=== PATIENT | male | born 1975 | race Two or more races ===

== ENCOUNTER 2017-04-13 17:22 | Emergency (ER) | payer SELFPAY ==
[2017-04-13] MEDS ORDERED: NS 1,000 ML IV ONE (17:51)
[2017-04-13] MEDS ORDERED: ONDANSETRON 4 MG/2 ML VIAL IVP ONE (17:51)
[2017-04-13] MEDS ORDERED: FAMOTIDINE 20 MG/NACL 50 ML IV ONE (17:51)
[2017-04-13] MEDS ORDERED: HYDROmorphONE/DILAUDID 1 MG/ML INJ IVP ONE (17:51)
[2017-04-13 17:56] LABS: % IMMATURE GRANULYOCYTES 0.7 % (0.0-1.1); ABSOLUTE IMMATURE GRANULOCYTES 0.08 10^3/uL (0.00-0.10); ADD DIFF? NO; ADD MORPH? NO; ADD SCAN? NO; ATYPICAL LYMPHOCYTE FLAG 0 (0-99); FRAGMENT RBC FLAG 0 (0-99); HEMATOCRIT 47.5 % (40.0-51.0); HEMOGLOBIN 15.8 g/dL (13.7-17.5); LEFT SHIFT FLG 0 (0-99); LIPEMIA HEMOLYSIS FLAG 80 (0-99); MEAN CELL HEMOGLOBIN 28.3 pg (27.9-34.1); MEAN CELL HEMOGLOBIN CONCENTR. 33.3 g/dL (32.4-36.7); MEAN CELL VOLUME 85.1 fL (81.5-99.8); MEAN PLATELET VOLUME 10.2 fL (8.7-11.7); PLATELET CLUMPS FLAG 0 (0-99); PLATELET COUNT 298 10^3/uL (150-400); RED BLOOD CELL COUNT 5.58 10^6/uL (4.40-6.38); RED CELL DISTRIBUTION WIDTH 13.4 % (11.5-15.2)
[2017-04-13 18:06] LABS: ALANINE AMINOTRANSFERASE 75 IU/L (21-72); ALBUMIN 4.4 g/dL (3.5-5.0); ALKALINE PHOSPHATASE 87 IU/L (38-126); ANION GAP 14 mEq/L (8-16); ASPARTATE AMINOTRANSFERASE 43 IU/L (17-59); BILIRUBIN,TOTAL 0.4 mg/dL (0.1-1.4); BILIRUBIN-CONJUGATED 0.3 mg/dL (0.0-0.5); BILIRUBIN-UNCONJUGATED 0.1 mg/dL (0.0-1.1); CALCIUM 9.4 mg/dL (8.5-10.4); CARBON DIOXIDE 23 mEq/l (22-31); CHLORIDE 103 mEq/L (97-110); GLOMERULAR FILTRATION RATE > 60; GLUCOSE 115 mg/dL (70-100); SODIUM 140 mEq/L (134-144); TOTAL PROTEIN 7.5 g/dL (6.3-8.2)
[2017-04-13] MEDS ORDERED: IOPAMIDOL (ISOVUE-300) 100 ML BTL ONE (18:11)
--- NOTE | 2017-04-13 18:11 | EDPHY ---
H & P Time Seen by Provider: 04/13/17 17:37 HPI/ROS: HPI Abdominal pain. 41-year-old male by private vehicle. History of an abdominal wall hernia surgically repaired 1-2 years ago. He does not know the name of the surgeon. Reports over the last 3 months he has had intermittent supraumbilical pain to his hernia area which usually resolves on its own. Sometimes it is associated with nausea and vomiting. He reports sudden-onset severe supraumbilical pain starting 1 hour prior to arrival with associated nausea and 2 episodes of nonbilious nonbloody vomiting. Last meal was several hours before this. ROS: Constitutional: No fever, no chills. No weakness. Eyes: No discharge. No changes in vision. ENT: No sore throat. No nasal congestion or rhinorrhea. Respiratory: No cough. No shortness of breath. Cardiac: No chest pain, no palpitations. Gastrointestinal: As above, no diarrhea. Genitourinary: No hematuria. No dysuria or increased frequency with urination. Musculoskeletal: No back pain. No neck pain. No myalgias or arthralgias. Skin: No rashes. Neurological: No headache. No focal weakness or altered sensation. Past medical history: As above. Social history: Nonsmoker. Drinks alcohol socially. Here by himself. Physical Exam: General Appearance: Alert, appears uncomfortable. This patient is responding to questions appropriately and in full sentences. This patient appears well- hydrated and well-nourished. Eyes: Pupils equal and round no pallor or injection. No lid edema, erythema or injection. Respiratory: There are no retractions, lungs are clear to auscultation with good air movement bilaterally. Cardiovascular: Regular rate and rhythm. No murmur. Gastrointestinal: Very tender palpable midline supraumbilical mass which is non reducible, bowel sounds present. No focal tenderness at McBurney's point. No Gil sign. Neurological: Motor sensory function is grossly intact. Cranial nerves are normal. Gait is normal. Skin: Warm and dry, no rashes. Musculoskeletal: Neck is supple and nontender. Extremities are symmetrical. All joints range without pain or impingement. Psychiatric: No agitation. No depression. Database: EKG: Imaging: CT scan of abdomen and pelvis with IV contrast: Demonstrates a supraumbilical abdominal wall hernia. Results were discussed with staff radiologist Dr. Jeffrey Diaz. Procedures: Emergency department course: IV placed. He was started on IV normal saline with 1 L to be given over the next hour. He was initially given 0.5 mg of IV hydromorphone, 20 mg of IV Pepcid and 4 mg of IV Zofran. I-STAT will be obtained for stat creatinine. Patient will be sent for CT imaging to evaluate for strangulated versus incarcerated abdominal wall hernia. 6:45 p.m., spoke with Dr. Jae Do, on-call trauma surgeon, who evaluated the patient in the emergency department. The patient had received above pain medication. Dr. Jae Do was able to reduce the patient's abdominal wall hernia. 7:00 p.m., spoke with Dr. Do. Patient cleared for discharge to home. Dr. Do will see this patient as an outpatient for further management of his abdominal wall hernia. 7:15 p.m., patient re-evaluated. Resting comfortably at this time. Denies any abdominal pain. Repeat abdominal exam is soft, nontender nondistended. Bowel sounds are present. He is comfortable being discharged and following up with surgery next week for further management. Return to emergency department precautions were discussed with him. All of his questions were answered. He was discharged home in good condition. Differential Diagnosis: The differential diagnosis on this patient includes but is not limited to strangulated hernia, incarcerated hernia, perforated peptic ulcer, volvulus. This represents a partial list of diagnoses considered. These considerations are based on history, physical exam, past history, reassessment and diagnostic testing. Smoking Status: Never smoked Constitutional: Initial Vital Signs Temperature (C) 36.8 C 04/13/17 17:28 Heart Rate 68 04/13/17 17:28 Respiratory Rate 18 04/13/17 17:28 O2 Sat (%) 94 04/13/17 17:28 O2 Delivery Mode Room Air Allergies/Adverse Reactions: No Known Allergies Allergy (Verified 05/26/15 13:15) Home Medications: Medication Instructions Recorded Hydrocodone/APAP 5/325 [[place] 1 - 2 tab PO Q4 PRN #0 tab 05/27/15 5/325 (*)] Docusate Sodium [Colace 100 MG (*)] 100 mg PO TID #20 cap 04/13/17 Medical Decision Making - Diagnostics Imaging Results: Imaging Impressions Abdomen CT 04/13/17 17:51 Impression: Recurrent versus chronic periumbilical hernia containing a loop of incarcerated small bowel. Results called and discussed with Marline Awan MD, at 04/13/2017 18:48 General information for patients regarding this examination can be found at [email or web address]. If you have questions or comments about this report, please contact me at (hospital) or [phone] (cell). - Data Points Laboratory Results: Laboratory Results 04/13/17 17:40 04/13/17 17:40 04/13/17 04/13/17 04/13/17 18:03 17:40 17:40 WBC 12.14 10^3/uL H 10^3/uL (3.80-9.50) RBC 5.58 10^6/uL 10^6/uL (4.40-6.38) Hgb 15.8 g/dL g/dL (13.7-17.5) POC Hgb 16.0 gm/dL gm/dL (13.7-17.5) Hct 47.5 % % (40.0-51.0) POC Hct 47 % % (40-51) MCV 85.1 fL fL (81.5-99.8) MCH 28.3 pg pg (27.9-34.1) MCHC 33.3 g/dL g/dL (32.4-36.7) RDW 13.4 % % (11.5-15.2) Plt Count 298 10^3/uL 10^3/uL (150-400) MPV 10.2 fL fL (8.7-11.7) Neut % (Auto) 60.5 % % (39.3-74.2) Lymph % (Auto) 28.6 % % (15.0-45.0) Tate % (Auto) 5.9 % % (4.5-13.0) Eos % (Auto) 3.8 % % (0.6-7.6) Baso % (Auto) 0.5 % % (0.3-1.7) Nucleat RBC Rel Count 0.0 % % (0.0-0.2) Absolute Neuts (auto) 7.35 10^3/uL H 10^3/uL (1.70-6.50) Absolute Lymphs (auto) 3.47 10^3/uL H 10^3/uL (1.00-3.00) Absolute Monos (auto) 0.72 10^3/uL 10^3/uL (0.30-0.80) Absolute Eos (auto) 0.46 10^3/uL H 10^3/uL (0.03-0.40) Absolute Basos (auto) 0.06 10^3/uL 10^3/uL (0.02-0.10) Absolute Nucleated RBC 0.00 10^3/uL 10^3/uL (0-0.01) Immature Gran % 0.7 % % (0.0-1.1) Immature Gran # 0.08 10^3/uL 10^3/uL (0.00-0.10) POC Sodium 141 mEq/L mEq/L (134-144) Sodium 140 mEq/L mEq/L (134-144) POC Potassium 3.7 mEq/L mEq/L (3.3-5.0) Potassium 4.0 mEq/L mEq/L (3.5-5.2) POC Chloride 106 mEq/L mEq/L (97-110) Chloride 103 mEq/L mEq/L (97-110) Carbon Dioxide 23 mEq/l mEq/l (22-31) Anion Gap 14 mEq/L mEq/L (8-16) POC BUN 22 mg/dL mg/dL (7-23) BUN 20 mg/dL mg/dL (7-23) Creatinine 1.0 mg/dL mg/dL (0.7-1.3) POC Creatinine 1.0 mg/dL mg/dL (0.7-1.3) Estimated GFR > 60 Glucose 115 mg/dL H mg/dL (70-100) POC Glucose 114 mg/dL H mg/dL (70-100) Calcium 9.4 mg/dL mg/dL (8.5-10.4) Total Bilirubin 0.4 mg/dL mg/dL (0.1-1.4) Conjugated Bilirubin 0.3 mg/dL mg/dL (0.0-0.5) Unconjugated Bilirubin 0.1 mg/dL mg/dL (0.0-1.1) AST 43 IU/L IU/L (17-59) ALT 75 IU/L H IU/L (21-72) Alkaline Phosphatase 87 IU/L IU/L (38-126) Total Protein 7.5 g/dL g/dL (6.3-8.2) Albumin 4.4 g/dL g/dL (3.5-5.0) Lipase 142 IU/L IU/L (23-300) Medications Given: Discontinued Medications Hydromorphone HCl (Dilaudid) 0.5 mg IVP EDNOW ONE Stop: 04/13/17 17:52 Last Admin: 04/13/17 18:09 Dose: 0.5 mg Sodium Chloride (Ns) 1,000 mls @ 0 mls/hr IV EDNOW ONE; Wide Open PRN Reason: Protocol Stop: 04/13/17 17:52 Last Admin: 04/13/17 18:08 Dose: 1,000 mls Famotidine/Sodium Chloride (Pepcid 20 Mg (Premix)) 50 mls @ 200 mls/hr IV EDNOW ONE Stop: 04/13/17 18:05 Last Admin: 04/13/17 18:10 Dose: 50 mls Ondansetron HCl (Zofran) 4 mg IVP EDNOW ONE Stop: 04/13/17 17:52 Last Admin: 04/13/17 18:08 Dose: 4 mg Point of Care Test Results: 04/13/17 18:03 POC Sodium 141 POC Potassium 3.7 POC Chloride 106 POC BUN 22 POC Creatinine 1.0 POC Glucose 114 H Departure - Departure Disposition: Home, Routine, Self-Care Clinical Impression: Abdominal pain, Abdominal wall hernia Condition: Good Instructions: Ventral Hernia (ED) Additional Instructions: Read and follow provided instructions. Follow-up with General surgery, Dr. Do next week for re-evaluation and further management as discussed. Return to the emergency department for return of pain, vomiting or other serious concerns. Avoid any heavy lifting or strenuous activity. I will prescribe you stool softeners. You need to try to avoid straining while having bowel movements as well. Referrals: Jae Wells MD [Medical Doctor] - As per Instructions Prescriptions: Docusate Sodium [Colace 100 MG (*)] 100 mg PO TID #20 cap
[2017-04-13 18:42] VITALS: PULSE 89; RESP 16; TEMP 97.2
[2017-04-13 20:14] VITALS: BP 134/86; O2SAT 94
--- NOTE | 2017-04-13 20:28 | GHP ---
[f rep st] HISTORY AND PHYSICAL DATE OF ADMISSION: 04/13/2017 CHIEF COMPLAINT: Abdominal pain. HISTORY OF PRESENT ILLNESS: This is an otherwise healthy, 41-year-old male, who presents to the emergency department with acute onset abdominal pain. The patient states that he has noticed a bulge around his umbilicus for the past 3 months, which has not really caused many issues. He states that today he was in his usual state of health and he began to notice some progressive abdominal pain, peaking around later this afternoon. He states that the pain progressed to the point where he had some nausea and did not go away, which is why he presented here. Here in the emergency department, he complains of periumbilical pain with some associated nausea. He continues to pass gas and has not thrown up. The pain is around his umbilicus. He describes it as a sharp pain without radiation, 7/10 in intensity, in a colicky-type fashion, better with rest, worse with activity. He denies having any fevers or chills. Of note, the patient presented approximately 2 years ago today with similar complaints, at which point in time, it was found that he had an incarcerated umbilical hernia where he was subsequently taken to the operating room, where it was repaired primarily. Patient states that he has noted a recurrence of the hernia for about the last 3 months. PAST MEDICAL HISTORY: None. PAST SURGICAL HISTORY: Laparoscopic appendectomy and incisional hernia repair performed in May of 2015. ALLERGIES: None. CURRENT MEDICATIONS: None. REVIEW OF SYSTEMS: A full 10-point review of systems was performed and, unless explicitly stated above, is otherwise negative. PHYSICAL EXAMINATION: VITAL SIGNS: Reviewed and are within normal limits. The patient is not tachycardic and afebrile. CONSTITUTIONAL: No apparent distress. He is comfortable and alert. EYES: Pupils are equal, round, and reactive to light. He has anicteric sclerae with normal extraocular movements. EARS, NOSE, MOUTH AND THROAT: He has moist mucous membranes with normal hearing. CARDIOVASCULAR: He has a regular rate and rhythm without any murmurs. RESPIRATORY: He has no respiratory distress. GASTROINTESTINAL: He has no overt skin changes, a horizontal incision superior to the umbilicus with a palpable bulge. No skin changes. No rebound tenderness or guarding. SKIN: Warm, normal color. Again, no skin changes on his abdomen, without any rashes. MUSCULOSKELETAL: Full muscle strength with no tenderness. NEUROLOGIC: He is alert and oriented x3 with cranial nerves 2-12 intact. PSYCHIATRIC: He is interacting appropriately, not anxious, and has a linear thought process. LYMPH : No cervical and/or groin lymphadenopathy. LABORATORY DATA: Leukocytosis to 12. H and H stable at 16 and 47. BMP is within normal limits. CT scan of the abdomen and pelvis, the images of which were personally reviewed by me, shows a chronic periumbilical hernia with a defect measuring approximately 3 cm, containing a loop of bowel, without any signs of perforation or other worrisome signs. ASSESSMENT/PLAN: A 41-year-old male, with recurrent incarcerated ventral hernia. I met the patient in the emergency department bay. With gentle pressure, not even in a recumbent position, the hernia was easily reduced with gentle palpation. The patient tolerated that well. His pain is now well controlled. He has no nausea. I counseled the patient that given the recurrence of his repair, and the fact that it was repaired last time primarily , the likelihood that he would recur with a primary repair this time would be almost 100% given time. I told him that the proper thing to do given successful taxis in the emergency room would be to allow some time for the inflammatory process to resolve, and he should follow up with me in the clinic for plans for an elective repair with mesh, as I think this would give him the best and most durable repair in the future. He understands this and wishes to proceed. I did give him return precautions, should he have any abdominal bulge that should return and would not be reducible and/or worsening fevers or chills , that he should present to the emergency department where this will require urgent and emergent intervention. He understood this and we will plan to see him in the clinic within the next week. /[id number]/MODL MTDD
== END 2017-04-13 20:14 | disposition home or self-care (01) ==
DX: K43.2 Incisional hernia without obstruction or gangrene (principal); Z98.890 Other specified postprocedural states
CPT/HCPCS: 82947-QW; 96374; J1170; J2405; Q9967

== ENCOUNTER 2018-01-01 13:51 | Emergency (ER) | payer SELFPAY ==
--- NOTE | 2018-01-01 14:26 | EDPHY ---
H & P Stated Complaint: HERNIA SURGERY 4 MONTHS AGO, NOW WITH PAIN IN THAT AREA Time Seen by Provider: 01/01/18 14:13 HPI/ROS: CHIEF COMPLAINT: Periumbilical pain HISTORY OF PRESENT ILLNESS: Patient is a 42-year-old man who has a history of recurrent umbilical hernia. He had it repaired primarily several years ago. He also has a history of appendectomy in 2015. He presented here last year and was found to have a return of his umbilical hernia that was easily reduced by Dr. Wells. At that time they planned revision with mesh as an outpatient. The patient decided to have this done in [place] however for cost reasons. This surgery was performed about 4 months ago. He states that it was done with mesh. Then a few days ago he had and lump in pain in that region. It seemed to resolve. Then today he had pain in that region and felt a lump again. He states that it feels exactly like before his hernia revision. No vomiting. Normal bowel movements and flatus. No fever. REVIEW OF SYSTEMS: Constitutional: denies: chills, fever, recent illness, recent injury EENTM: denies: blurred vision, double vision, nose congestion Respiratory: denies: cough, shortness of breath Cardiac: denies: chest pain, irregular heart rate, lightheadedness, palpitations Gastrointestinal/Abdominal: See HPI denies: a diarrhea, nausea, vomiting, blood streaked stools Genitourinary: denies: dysuria, frequency, hematuria, pain Musculoskeletal: denies: joint pain, muscle pain Skin: denies: lesions, rash, jaundice, bruising Neurological: denies: headache, numbness, paresthesia, tingling, dizziness, weakness Hematologic/Lymphatic: denies: blood clots, easy bleeding, easy bruising Immunologic/allergic: denies: HIV/AIDS, transplant EXAM: GENERAL: Well-appearing, well-nourished and in no acute distress. HEAD: Atraumatic, normocephalic. EYES: Pupils equal round and reactive to light, extraocular movements intact, sclera anicteric, conjunctiva are normal. ENT: TMs normal, nares patent, oropharynx clear without exudates. Moist mucous membranes. NECK: Normal range of motion, supple without lymphadenopathy or JVD. LUNGS: Breath sounds clear to auscultation bilaterally and equal. No wheezes rales or rhonchi. HEART: Regular rate and rhythm without murmurs, rubs or gallops. ABDOMEN: Small umbilical hernia, slightly tender to palpation. Easily reduced manually. normoactive bowel sounds. No guarding, no rebound. BACK: No CVA tenderness, no spinal tenderness, step-offs or deformities EXTREMITIES: Normal range of motion, no pitting or edema. No clubbing or cyanosis. NEUROLOGICAL: Cranial nerves II through XII grossly intact. Normal speech, normal gait. 5/5 strength, normal movement in all extremities, normal sensation PSYCH: Normal mood, normal affect. SKIN: Warm, dry, normal turgor, no visible rashes or lesions. Source: Patient Exam Limitations: No limitations - Personal History Current Tetanus Diphtheria and Acellular Pertussis (TDAP): Yes Tetanus Vaccine Date: < 10 YEARS - Medical/Surgical History Hx Asthma: No Hx Chronic Respiratory Disease: No Hx Diabetes: No Hx Cardiac Disease: No Hx Renal Disease: No Hx Cirrhosis: No Hx Alcoholism: No Hx HIV/AIDS: No Hx Splenectomy or Spleen Trauma: No Other PMH: hernia, ulcers, appy - Family History Significant Family History: No pertinent family hx - Social History Smoking Status: Never smoked Alcohol Use: Sober Drug Use: None Constitutional: Initial Vital Signs Temperature (C) 37 C 01/01/18 13:51 Heart Rate 85 01/01/18 13:51 Respiratory Rate 16 01/01/18 13:51 Blood Pressure 132/114 H 01/01/18 13:51 O2 Sat (%) 94 01/01/18 13:51 O2 Delivery Mode Room Air Allergies/Adverse Reactions: No Known Allergies Allergy (Verified 01/01/18 13:55) Medical Decision Making ED Course/Re-evaluation: Patient had a small palpable umbilical hernia that was easily reduced. Will continue to observe and re-evaluate. 3:10 p.m. the patient continues to feel well. He is no longer having abdominal pain. His abdominal exam is benign. We will have him road test and discharged to follow up with surgery for likely revision of his hernia. 3:20 p.m. While standing at the patient's any recurred. He was again easily reduced. We discussed that this may happen recurrently in his lungs seeking get it back in it is safe for elective repair. He understands and agrees. I did offer CT scanning but he declines. He will follow up with Dr. Wells as previously planned. Differential Diagnosis: Partial list of the Differential diagnosis considered include but were not limited to; umbilical hernia, incarcerated hernia and although unlikely based on the history and physical exam, I also considered ischemia, obstruction, perforation. I discussed these differential diagnoses and the plan with the patient as well as the usual and expected course. The patient understands that the diagnosis is provisional and that in medicine we are not always correct and that further workup is often warranted. Usual and customary warnings were given. All of the patient's questions were answered. The patient was instructed to return to the emergency department should the symptoms at all worsen or return, otherwise to followup with the physician as we discussed. Departure - Departure Disposition: Home, Routine, Self-Care Clinical Impression: Abdominal pain Qualifiers: Abdominal location: periumbilical Qualified Code(s): R10.33 - Periumbilical pain Umbilical hernia Qualifiers: Obstruction and gangrene presence: without obstruction or gangrene Qualified Code(s): K42.9 - Umbilical hernia without obstruction or gangrene Condition: Fair Instructions: Umbilical Hernia (ED) Referrals: NONE *PRIMARY CARE P,. [Primary Care Provider] - As per Instructions Jae Wells MD [Medical Doctor] - 5-7 days, call for appt.
[2018-01-01 15:28] VITALS: BP 128/100
== END 2018-01-01 15:27 | disposition home or self-care (01) ==
DX: K42.9 Umbilical hernia without obstruction or gangrene (principal)

== ENCOUNTER → 2018-10-07 | Outpatient (CLI) | payer OTHER | LOC: BMCIMAGING 08:54 | PROVIDERS: ATTEND Family Medicine | DX: M25.461 Effusion, right knee (principal) ==